=== PATIENT | male | born 1930 | race Caucasian/White ===

== ENCOUNTER 2017-02-06 19:35 | Inpatient (IN) ==
[2017-02-06 20:33] LABS: Basophils # 0.1 10*3/uL (0.0-0.2); Basophils % 0.5 % (0.0-0.8); Eosinophils # 0.2 10*3/uL (0.0-0.87); Hematocrit 38.6 VOL% (42.0-52.0); Hemoglobin 13.8 GM/DL (14.0-18.0); Immature Granulocytes % 0.7 %; Immature Granulocytes Absolute 0.08 #; Lymphocytes # 0.8 10*3/uL (1.4-4.0); Lymphocytes % 6.7 % (21.2-54.2); Mean Corpuscular HGB Conc 35.8 GM/DL (32-36); Mean Corpuscular Hemoglobin 31 PG (27-34); Mean Corpuscular Volume 87.3 FL (87-102); Mean Platelet Volume 10.7 FL (9.6-12.0); Monocytes # 0.8 10*3/uL (0.11-0.8); Monocytes % 7.1 % (1.7-12.7); Neutrophils # 9.3 10*3/uL (1.4-7.4); Platelet Count 176 T/CUMM (130-400); Red Blood Count 4.42 MC/CUMM (3.8-5.5); Red Cell Distribution Width 14.6 % (9.3-17.3); White Blood Count 11.2 T/CUMM (4-12)
[2017-02-06 21:14] LABS: Albumin 2.9 G/DL (3.4-5.0); Bilirubin,Total 0.8 MG/DL (0.2-1.0); Calcium 8.4 MG/DL (8.5-10.1); Osmolality,Calculated 280.4 MOS/KG (273-304); Potassium 2.9 MMOL/L (3.5-5.1)
[2017-02-07] MEDS ORDERED: ACETAMINOPHEN 325 MG TABLET PO PRN (00:22)
[2017-02-07] MEDS: SODIUM CHLORIDE 0.9% 1,000 ML IV SCH ×2 (00:41→14:07)
[2017-02-07] MEDS ORDERED: POTASSIUM CHLORIDE 20 MEQ PACK PO ONE (01:00)
[2017-02-07] MEDS: traZODone 50 MG TABLET PO SCH (01:30)
[2017-02-07] MEDS: BACITRACIN OINT 0.9 GM PACK TOP SCH (10:20)
[2017-02-07] MEDS: POTASSIUM CHLORIDE 20 MEQ TABLET PO SCH (10:24)
[2017-02-07] MEDS: LEVOTHYROXINE 125 MCG TABLET PO SCH (10:25)
[2017-02-07] MEDS: CARVEDILOL 3.125 MG TABLET PO SCH ×2 (10:25→17:50)
[2017-02-07] MEDS: FUROSEMIDE 40 MG TABLET PO SCH (10:26)
[2017-02-07] MEDS: PANTOPRAZOLE 40 MG TABLET PO SCH (10:27)
[2017-02-07] MEDS: FINASTERIDE 5 MG TABLET PO SCH (10:27)
[2017-02-07] MEDS: AMIODARONE 200 MG TABLET PO SCH (10:28)
[2017-02-07] MEDS: MEMANTINE 10 MG TABLET PO SCH (10:28)
[2017-02-07] MEDS: DOCUSATE SODIUM 100 MG CAPSULE PO SCH (10:29)
[2017-02-07] MEDS: ENOXAPARIN 40 MG/0.4 ML SYRINGE SUBCUT SCH (10:29)
[2017-02-07] MEDS: QUEtiapine 25 MG TABLET PO PRN (14:54)
[2017-02-07] MEDS ORDERED: TUBERCULIN SKIN TEST 0.1 ML SYRINGE INTRADERM ONE (15:00)
[2017-02-07] MEDS ORDERED: QUEtiapine 25 MG TABLET PO STA (16:07)
[2017-02-08] MEDS: traZODone 50 MG TABLET PO SCH ×2 (01:09→22:23)
[2017-02-08] MEDS: MEMANTINE 10 MG TABLET PO SCH ×3 (01:09→22:23)
[2017-02-08] MEDS: DOCUSATE SODIUM 100 MG CAPSULE PO SCH ×3 (01:09→22:23)
[2017-02-08] MEDS: AMIODARONE 200 MG TABLET PO SCH ×3 (01:12→22:23)
[2017-02-08] MEDS: SODIUM CHLORIDE 0.9% 1,000 ML IV SCH ×2 (03:53→17:41)
[2017-02-08 06:29] LABS: Calcium 8.2 MG/DL (8.5-10.1); Osmolality,Calculated 287.8 MOS/KG (273-304); Potassium 3.5 MMOL/L (3.5-5.1)
[2017-02-08] MEDS: POTASSIUM CHLORIDE 20 MEQ TABLET PO SCH (09:30)
[2017-02-08] MEDS: LEVOTHYROXINE 125 MCG TABLET PO SCH (09:30)
[2017-02-08] MEDS: FINASTERIDE 5 MG TABLET PO SCH (09:30)
[2017-02-08] MEDS: PANTOPRAZOLE 40 MG TABLET PO SCH (09:30)
[2017-02-08] MEDS: FUROSEMIDE 40 MG TABLET PO SCH (09:30)
[2017-02-08] MEDS: ENOXAPARIN 40 MG/0.4 ML SYRINGE SUBCUT SCH (09:31)
[2017-02-08] MEDS: BACITRACIN OINT 0.9 GM PACK TOP SCH (09:31)
[2017-02-08] MEDS: CARVEDILOL 3.125 MG TABLET PO SCH ×2 (09:31→16:50)
[2017-02-08 15:38] LABS: Apearance,Urine Slightly Hazy (Clear); Bilirubin,Urine Negative (Negative); Blood, Urine Moderate mg/dL (Negative); Glucose,Urine (UA) Negative (Negative); Ketones,Urine Negative (Negative); Mucus,Urine Occasional /LPF (Occasional); Nitrite,Urine Positive (Negative); Protein,Urine Negative; RBC,Urine 14 /HPF (0-4); Urine Color Yellow (Yellow); Urine Specific Gravity 1.006 (1.001-1.035); Urine Urobilinogen < 2.0 EU/DL (0.2-1.0); WBC,Urine 36 /HPF (0-6)
[2017-02-08] MEDS: cefTRIAXone 1,000 MG in SYRINGE 1 EACH IV SCH (16:49)
[2017-02-08] MEDS: PHENAZOPYRIDINE 95 MG TABLET PO SCH ×2 (16:50→17:21)
[2017-02-09] MEDS: SODIUM CHLORIDE 0.9% 1,000 ML IV SCH (08:07)
[2017-02-09] MEDS: LEVOTHYROXINE 125 MCG TABLET PO SCH (08:08)
[2017-02-09] MEDS ORDERED: TAMSULOSIN 0.4 MG CAPSULE PO SCH (09:00)
[2017-02-09] MEDS: cefTRIAXone 1,000 MG in SYRINGE 1 EACH IV SCH (09:38)
[2017-02-09] MEDS: ENOXAPARIN 40 MG/0.4 ML SYRINGE SUBCUT SCH (09:38)
[2017-02-09] MEDS: FUROSEMIDE 40 MG TABLET PO SCH (09:42)
[2017-02-09] MEDS: PHENAZOPYRIDINE 95 MG TABLET PO SCH ×3 (09:46→17:07)
[2017-02-09] MEDS: AMIODARONE 200 MG TABLET PO SCH ×2 (09:46→21:26)
[2017-02-09] MEDS: MEMANTINE 10 MG TABLET PO SCH ×2 (09:46→21:26)
[2017-02-09] MEDS: FINASTERIDE 5 MG TABLET PO SCH (09:47)
[2017-02-09] MEDS: CARVEDILOL 3.125 MG TABLET PO SCH ×2 (09:47→17:07)
[2017-02-09] MEDS: DOCUSATE SODIUM 100 MG CAPSULE PO SCH ×2 (09:47→21:33)
[2017-02-09] MEDS: POTASSIUM CHLORIDE 20 MEQ TABLET PO SCH (09:48)
[2017-02-09] MEDS: BACITRACIN OINT 0.9 GM PACK TOP SCH (09:49)
[2017-02-09] MEDS: PANTOPRAZOLE 40 MG TABLET PO SCH (11:24)
[2017-02-09] MEDS: MORPHINE 2 MG/1 ML SYRINGE IV PRN ×2 (13:04→21:28)
[2017-02-09] MEDS: ACETAMINOPHEN 325 MG TABLET PO SCH (17:06)
[2017-02-09] MEDS: traZODone 50 MG TABLET PO SCH (21:26)
[2017-02-10] MEDS: ACETAMINOPHEN 325 MG TABLET PO SCH ×3 (00:36→17:28)
[2017-02-10] MEDS: LEVOTHYROXINE 125 MCG TABLET PO SCH (06:44)
[2017-02-10 07:35] LABS: Osmolality,Calculated 279.4 MOS/KG (273-304)
[2017-02-10] MEDS: ENOXAPARIN 40 MG/0.4 ML SYRINGE SUBCUT SCH (09:30)
[2017-02-10] MEDS: cefTRIAXone 1,000 MG in SYRINGE 1 EACH IV SCH (09:31)
[2017-02-10] MEDS: PHENAZOPYRIDINE 95 MG TABLET PO SCH ×3 (09:31→17:29)
[2017-02-10] MEDS: POTASSIUM CHLORIDE 20 MEQ TABLET PO SCH ×3 (09:32→14:01)
[2017-02-10] MEDS: PANTOPRAZOLE 40 MG TABLET PO SCH (09:33)
[2017-02-10] MEDS: MEMANTINE 10 MG TABLET PO SCH ×2 (09:33→21:07)
[2017-02-10] MEDS: TAMSULOSIN 0.4 MG CAPSULE PO SCH ×2 (09:33→21:06)
[2017-02-10] MEDS: DOCUSATE SODIUM 100 MG CAPSULE PO SCH ×2 (09:34→21:06)
[2017-02-10] MEDS: AMIODARONE 200 MG TABLET PO SCH ×2 (09:34→21:06)
[2017-02-10] MEDS: FINASTERIDE 5 MG TABLET PO SCH (09:35)
[2017-02-10] MEDS: BACITRACIN OINT 0.9 GM PACK TOP SCH (09:36)
[2017-02-10] MEDS: CARVEDILOL 3.125 MG TABLET PO SCH ×2 (09:36→17:29)
[2017-02-10] MEDS: MORPHINE 2 MG/1 ML SYRINGE IV PRN (10:44)
[2017-02-10 15:35] LABS: Apearance,Urine CLOUDY (Clear); Bilirubin,Urine Negative (Negative); Blood, Urine Moderate mg/dL (Negative); Glucose,Urine (UA) Negative (Negative); Ketones,Urine Negative (Negative); Mucus,Urine Moderate /LPF (Occasional); Nitrite,Urine Positive (Negative); Protein,Urine 30 MG/DL; RBC,Urine 96 /HPF (0-4); Urine Specific Gravity 1.008 (1.001-1.035); WBC,Urine 3369 /HPF (0-6)
[2017-02-10 15:37] LABS: Urine Color Yellow (Yellow)
[2017-02-10] MEDS: traZODone 50 MG TABLET PO SCH (21:06)
[2017-02-11] MEDS: ACETAMINOPHEN 325 MG TABLET PO SCH ×3 (01:54→17:50)
[2017-02-11 02:39] LABS: Basophils % 0.5 % (0.0-0.8); Eosinophils # 0.2 10*3/uL (0.0-0.87); Eosinophils % 3.9 % (0.00-10.9); Hematocrit 35.1 VOL% (42.0-52.0); Hemoglobin 12.2 GM/DL (14.0-18.0); Immature Granulocytes % 0.5 %; Immature Granulocytes Absolute 0.03 #; Lymphocytes # 0.7 10*3/uL (1.4-4.0); Lymphocytes % 11.5 % (21.2-54.2); Mean Corpuscular HGB Conc 34.8 GM/DL (32-36); Mean Corpuscular Hemoglobin 31 PG (27-34); Mean Corpuscular Volume 88.4 FL (87-102); Mean Platelet Volume 11.2 FL (9.6-12.0); Monocytes # 0.5 10*3/uL (0.11-0.8); Monocytes % 8.8 % (1.7-12.7); Neutrophils # 4.4 10*3/uL (1.4-7.4); Neutrophils % 74.8 % (38.7-73.9); Platelet Count 149 T/CUMM (130-400); Red Blood Count 3.97 MC/CUMM (3.8-5.5); Red Cell Distribution Width 14.6 % (9.3-17.3); White Blood Count 5.9 T/CUMM (4-12)
[2017-02-11 03:09] LABS: Calcium 7.8 MG/DL (8.5-10.1); Osmolality,Calculated 281.4 MOS/KG (273-304); Potassium 3.6 MMOL/L (3.5-5.1)
[2017-02-11] MEDS: QUEtiapine 25 MG TABLET PO PRN (04:54)
[2017-02-11] MEDS: CARVEDILOL 3.125 MG TABLET PO SCH ×2 (08:55→17:51)
[2017-02-11] MEDS: PHENAZOPYRIDINE 95 MG TABLET PO SCH ×3 (08:55→17:50)
[2017-02-11] MEDS: LEVOTHYROXINE 125 MCG TABLET PO SCH (08:55)
[2017-02-11] MEDS: PANTOPRAZOLE 40 MG TABLET PO SCH (09:28)
[2017-02-11] MEDS: TAMSULOSIN 0.4 MG CAPSULE PO SCH (09:29)
[2017-02-11] MEDS: AMIODARONE 200 MG TABLET PO SCH ×2 (09:30→20:51)
[2017-02-11] MEDS: MEMANTINE 10 MG TABLET PO SCH ×2 (09:30→20:51)
[2017-02-11] MEDS: FINASTERIDE 5 MG TABLET PO SCH (09:30)
[2017-02-11] MEDS: cefTRIAXone 1,000 MG in SYRINGE 1 EACH IV SCH (09:30)
[2017-02-11] MEDS: POTASSIUM CHLORIDE 20 MEQ TABLET PO SCH (09:30)
[2017-02-11] MEDS: DOCUSATE SODIUM 100 MG CAPSULE PO SCH ×2 (09:31→20:51)
[2017-02-11] MEDS: BACITRACIN OINT 0.9 GM PACK TOP SCH (09:31)
[2017-02-11] MEDS: ENOXAPARIN 40 MG/0.4 ML SYRINGE SUBCUT SCH (09:32)
[2017-02-11] MEDS: traZODone 50 MG TABLET PO SCH (20:51)
[2017-02-12] MEDS: ACETAMINOPHEN 325 MG TABLET PO SCH ×3 (00:31→16:47)
[2017-02-12] MEDS: QUEtiapine 25 MG TABLET PO PRN ×2 (05:58→21:19)
[2017-02-12] MEDS: PHENAZOPYRIDINE 95 MG TABLET PO SCH ×3 (08:45→16:47)
[2017-02-12] MEDS: LEVOTHYROXINE 125 MCG TABLET PO SCH (08:45)
[2017-02-12] MEDS: CARVEDILOL 3.125 MG TABLET PO SCH ×2 (08:45→16:48)
[2017-02-12] MEDS: AMIODARONE 200 MG TABLET PO SCH ×2 (09:03→21:20)
[2017-02-12] MEDS: MEMANTINE 10 MG TABLET PO SCH ×2 (09:03→21:19)
[2017-02-12] MEDS: POTASSIUM CHLORIDE 20 MEQ TABLET PO SCH (09:04)
[2017-02-12] MEDS: PANTOPRAZOLE 40 MG TABLET PO SCH (09:04)
[2017-02-12] MEDS: DOCUSATE SODIUM 100 MG CAPSULE PO SCH ×2 (09:04→21:19)
[2017-02-12] MEDS: FINASTERIDE 5 MG TABLET PO SCH (09:05)
[2017-02-12] MEDS: ENOXAPARIN 40 MG/0.4 ML SYRINGE SUBCUT SCH (09:05)
[2017-02-12] MEDS: TAMSULOSIN 0.4 MG CAPSULE PO SCH (09:05)
[2017-02-12] MEDS: BACITRACIN OINT 0.9 GM PACK TOP SCH (09:05)
[2017-02-12] MEDS: traZODone 50 MG TABLET PO SCH (21:20)
[2017-02-13] MEDS: ACETAMINOPHEN 325 MG TABLET PO SCH ×3 (02:24→17:20)
[2017-02-13] MEDS: PHENAZOPYRIDINE 95 MG TABLET PO SCH ×3 (07:56→17:20)
[2017-02-13] MEDS: CARVEDILOL 3.125 MG TABLET PO SCH ×2 (07:56→17:20)
[2017-02-13] MEDS: LEVOTHYROXINE 125 MCG TABLET PO SCH (07:56)
[2017-02-13] MEDS: POTASSIUM CHLORIDE 20 MEQ TABLET PO SCH (08:00)
[2017-02-13] MEDS: AMIODARONE 200 MG TABLET PO SCH (08:01)
[2017-02-13] MEDS: PANTOPRAZOLE 40 MG TABLET PO SCH (08:01)
[2017-02-13] MEDS: MEMANTINE 10 MG TABLET PO SCH (08:01)
[2017-02-13] MEDS: DOCUSATE SODIUM 100 MG CAPSULE PO SCH (08:01)
[2017-02-13] MEDS: FINASTERIDE 5 MG TABLET PO SCH (08:01)
[2017-02-13] MEDS: TAMSULOSIN 0.4 MG CAPSULE PO SCH (08:01)
[2017-02-13] MEDS: BACITRACIN OINT 0.9 GM PACK TOP SCH (08:02)
[2017-02-13] MEDS: ENOXAPARIN 40 MG/0.4 ML SYRINGE SUBCUT SCH (08:02)
[2017-02-14] MEDS: AMIODARONE 200 MG TABLET PO SCH ×3 (00:40→21:32)
[2017-02-14] MEDS: traZODone 50 MG TABLET PO SCH ×2 (00:40→21:32)
[2017-02-14] MEDS: DOCUSATE SODIUM 100 MG CAPSULE PO SCH ×3 (00:40→21:31)
[2017-02-14] MEDS: MEMANTINE 10 MG TABLET PO SCH ×3 (00:40→21:32)
[2017-02-14] MEDS: ACETAMINOPHEN 325 MG TABLET PO SCH ×2 (01:02→09:42)
[2017-02-14] MEDS: LEVOTHYROXINE 125 MCG TABLET PO SCH (09:41)
[2017-02-14] MEDS: BACITRACIN OINT 0.9 GM PACK TOP SCH (09:41)
[2017-02-14] MEDS: FINASTERIDE 5 MG TABLET PO SCH (09:41)
[2017-02-14] MEDS: CARVEDILOL 3.125 MG TABLET PO SCH ×2 (09:41→17:34)
[2017-02-14] MEDS: PANTOPRAZOLE 40 MG TABLET PO SCH (09:42)
[2017-02-14] MEDS: POTASSIUM CHLORIDE 20 MEQ TABLET PO SCH (09:42)
[2017-02-14] MEDS: TAMSULOSIN 0.4 MG CAPSULE PO SCH (09:42)
[2017-02-14] MEDS: ENOXAPARIN 40 MG/0.4 ML SYRINGE SUBCUT SCH (09:46)
[2017-02-14] MEDS: PHENAZOPYRIDINE 95 MG TABLET PO SCH ×3 (10:46→17:33)
[2017-02-14] MEDS: AMPICILLIN 500 MG CAPSULE PO SCH ×3 (13:12→21:32)
[2017-02-14] MEDS: QUEtiapine 25 MG TABLET PO PRN (15:50)
[2017-02-14] MEDS: ACETAMINOPHEN 500 MG TABLET PO SCH ×2 (15:50→21:31)
[2017-02-15 06:05] LABS: Basophils # 0.1 10*3/uL (0.0-0.2); Eosinophils # 0.3 10*3/uL (0.0-0.87); Eosinophils % 4.3 % (0.00-10.9); Hematocrit 36.5 VOL% (42.0-52.0); Hemoglobin 12.8 GM/DL (14.0-18.0); Immature Granulocytes % 1.6 %; Lymphocytes # 0.6 10*3/uL (1.4-4.0); Lymphocytes % 10.2 % (21.2-54.2); Mean Corpuscular HGB Conc 35.1 GM/DL (32-36); Mean Corpuscular Hemoglobin 31 PG (27-34); Mean Corpuscular Volume 88.2 FL (87-102); Mean Platelet Volume 10.9 FL (9.6-12.0); Monocytes # 0.6 10*3/uL (0.11-0.8); Monocytes % 9.8 % (1.7-12.7); Neutrophils # 4.5 10*3/uL (1.4-7.4); Neutrophils % 73.1 % (38.7-73.9); Platelet Count 206 T/CUMM (130-400); Red Blood Count 4.14 MC/CUMM (3.8-5.5); Red Cell Distribution Width 14.2 % (9.3-17.3); White Blood Count 6.1 T/CUMM (4-12)
[2017-02-15 06:22] LABS: Calcium 8.2 MG/DL (8.5-10.1); Osmolality,Calculated 275.7 MOS/KG (273-304); Potassium 3.5 MMOL/L (3.5-5.1)
[2017-02-15] MEDS: ENOXAPARIN 40 MG/0.4 ML SYRINGE SUBCUT SCH (09:34)
[2017-02-15] MEDS: POTASSIUM CHLORIDE 20 MEQ TABLET PO SCH (09:35)
[2017-02-15] MEDS: AMPICILLIN 500 MG CAPSULE PO SCH ×2 (09:35→15:17)
[2017-02-15] MEDS: ACETAMINOPHEN 500 MG TABLET PO SCH ×2 (09:35→15:16)
[2017-02-15] MEDS: PHENAZOPYRIDINE 95 MG TABLET PO SCH ×2 (09:35→15:16)
[2017-02-15] MEDS: AMIODARONE 200 MG TABLET PO SCH (09:35)
[2017-02-15] MEDS: LEVOTHYROXINE 125 MCG TABLET PO SCH (09:35)
[2017-02-15] MEDS: FINASTERIDE 5 MG TABLET PO SCH (09:35)
[2017-02-15] MEDS: MEMANTINE 10 MG TABLET PO SCH (09:35)
[2017-02-15] MEDS: CARVEDILOL 3.125 MG TABLET PO SCH (09:35)
[2017-02-15] MEDS: BACITRACIN OINT 0.9 GM PACK TOP SCH (09:35)
[2017-02-15] MEDS: PANTOPRAZOLE 40 MG TABLET PO SCH (09:35)
[2017-02-15] MEDS: DOCUSATE SODIUM 100 MG CAPSULE PO SCH (09:35)
[2017-02-15] MEDS: TAMSULOSIN 0.4 MG CAPSULE PO SCH (09:35)
[2017-02-15 12:06] VITALS: BP 89/53
== END 2017-02-15 16:14 | disposition hospice, home (50) | DRG 91 ==
LOC: EDUNIT# → EDBD → N.ED 19:35 → SUATTDRO 23:23 → N.EDINP 23:23 → N.2E 02-07 00:21
PROVIDERS: ADMIT Internal Medicine; ATTEND Internal Medicine